=== PATIENT | female | born 1995 | race African-American/Black ===

== ENCOUNTER 2019-05-26 14:22 | Emergency (ER) | payer OTHER ==
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
[2019-05-26 17:14] LABS: APPEARANCE,URINE CLEAR; BILIRUBIN,URINE NEGATIVE (NEGATIVE); COLOR,URINE YELLOW; GLUCOSE, URINE NEGATIVE (NEGATIVE); KETONES,URINE NEGATIVE (NEGATIVE); LEUKOCYTE ESTERASE,URINE NEGATIVE (NEGATIVE); NITRITE,URINE NEGATIVE (NEGATIVE); PROTEIN,URINE NEGATIVE (NEGATIVE); URINE SPECIFIC GRAVITY 1.017; UROBILINOGEN,URINE NEGATIVE mg/dL (<2.0)
[2019-05-26 18:33] LABS: RBCS (WET MOUNT) 3+ RBCS SEEN; T.VAGINALIS (WET MOUNT) NO TRICHOMONAS SEEN; WBCS (WET MOUNT) RARE WBCS SEEN; YEAST (WET MOUNT) NO YEAST SEEN
[2019-05-26 19:51] VITALS: BP 103/73
[2019-05-26 20:02] LABS: CHLAM PCR NOT DETECTED (NOT DETECT)
== END 2019-05-26 19:30 | disposition home or self-care (01) ==
LOC: ER 14:22
DX: T76.21XA Adult sexual abuse, suspected, initial encounter (principal); X58.XXXA Exposure to other specified factors, initial encounter; Y92.003 Bedroom of unspecified non-institutional (private) residence as the place of occurrence of the external cause
CPT/HCPCS: 36415; 81001; 81025; 86592; 86701; 87210; 87491; 87591; 99285